=== PATIENT | female | born 1940 | race Caucasian/White ===

== ENCOUNTER 2025-06-09 10:29 | Outpatient (CLI) | payer OTHER | END 2025-06-09 10:30 | disposition home or self-care (01) | LOC: CSHMAMMO 10:29 | PROVIDERS: ATTEND Family Medicine | DX: Z12.31 Encounter for screening mammogram for malignant neoplasm of breast (principal); Z98.890 Other specified postprocedural states | CPT/HCPCS: 77063; 77067 ==